=== PATIENT | male | born 1970 | race Caucasian/White ===

== ENCOUNTER 2019-09-01 08:12 | Outpatient (CLI) | payer OTHER ==
--- NOTE | 2019-09-01 08:36 | ULT ---
ULTRASOUND ABDOMEN LIMITED: (RIGHT UPPER QUADRANT) DATE: 09/01/2019 HISTORY: Elevated liver function tests in 49-year-old male COMPARISON: 09/28/2009 FINDINGS: Gallbladder:Normal wall thickness. No gallstones identified. No pericholecystic fluid. No excessive d istention. Common duct: 4 mm. Liver:Echogenicity diffusely mildly homogeneously increased, which may or may not represent fatty yaniv er. The previously demonstrated hyperechoic focus near the hepatic hilum, representing focal fatty liver, is not demonstrated on the current ultrasound. Instead, there is a new finding of a 1.5 x 1.5 x 2 cm liver cyst. Pancreas:Suboptimal visualization because of body habitus. Right kidney:No hydronephrosis IMPRESSION: 1) there may or may not be hepatic steatosis. 2) new small hepatic cyst.
== END 2019-09-01 08:13 | disposition home or self-care (01) ==
LOC: SCSULT 08:12
PROVIDERS: ATTEND Family Medicine
DX: R79.89 Other specified abnormal findings of blood chemistry (principal); K76.89 Other specified diseases of liver
CPT/HCPCS: 76705